=== PATIENT | female | born 1965 | race Caucasian/White ===

== ENCOUNTER 2022-10-16 11:02 | Emergency (ER) | payer MEDICARE, OTHER ==
[~2022-10-16] VITALS: Ht 154.9 cm; Wt 80.7 kg
[2022-10-16 11:16] VITALS: BP 127/82
--- NOTE | 2022-10-16 11:21 | NUR ---
PT W/C ASSISTED TO BED 2
[2022-10-16] MEDS ORDERED: KETOROLAC 60 MG/2 ML VIAL IM ONE (11:40)
--- NOTE | 2022-10-16 11:40 | NUR ---
ASSUMED PATIENT CARE, NURSING ASSESSMENT COMPLETED.
--- NOTE | 2022-10-16 12:02 | NUR ---
XRAY AT BEDSIDE.
[2022-10-16] MEDS ORDERED: ACET-8905 PO (13:46)
[2022-10-16] MEDS ORDERED: NAPR-1704 PO (13:46)
[2022-10-16 14:10] VITALS: BP 125/78
--- NOTE | 2022-10-16 14:11 | NUR ---
Note guilleone in EDM - 10/16/22 at 1602 by [id number] Patient discharged with v/s stable. Written and verbal after care instructions given and explained. Patient alert, oriented and verbalized understanding of instructions. Ambulatory with to car. All questions addressed prior to discharge. ID band removed. Patient advised to follow up with PMD. Rx of flexeril, lidocaine, naproxen given. Patient educated on indication of medication including possible reaction and side effects. Opportunity to ask questions provided and answered.
--- NOTE | 2022-10-16 14:55 | NUR ---
Patient discharged with v/s stable. Written and verbal after care instructions given and explained. Patient alert, oriented and verbalized understanding of instructions. Ambulatory with steady gait. All questions addressed prior to discharge. ID band removed. Patient advised to follow up with PMD. Rx of NORCO (SENT) given. Patient educated on indication of medication including possible reaction and side effects. Opportunity to ask questions provided and answered. PROVIDED CORRECT PAPERWORK
== END 2022-10-16 14:55 | disposition home or self-care (01) ==
LOC: MED 11:02
DX: S83.92XA Sprain of unspecified site of left knee, initial encounter (principal); S93.402A Sprain of unspecified ligament of left ankle, initial encounter; G81.94 Hemiplegia, unspecified affecting left nondominant side; R51.9 Headache, unspecified; M25.552 Pain in left hip; E11.9 Type 2 diabetes mellitus without complications; I10 Essential (primary) hypertension; Z86.73 Personal history of transient ischemic attack (TIA), and cerebral infarction without residual deficits; Z98.890 Other specified postprocedural states; Z79.1 Long term (current) use of non-steroidal anti-inflammatories (NSAID); Z79.891 Long term (current) use of opiate analgesic; W01.0XXA Fall on same level from slipping, tripping and stumbling without subsequent striking against object, initial encounter; Y92.89 Other specified places as the place of occurrence of the external cause; Y93.89 Activity, other specified; Y99.8 Other external cause status
CPT/HCPCS: 29515; 73562; 73610; 73630; 96374; 99284; J1885; Q0092

== ENCOUNTER 2024-01-29 11:52 | Emergency (ER) | payer MEDICARE, OTHER ==
[~2024-01-29] VITALS: Ht 157.5 cm; Wt 68.0 kg
[~2024-01-29 11:52] MED LIST: ACET-8905 PO; NAPR-1704 PO
[2024-01-29 11:54] VITALS: BP 138/71; PULSE 92; RESP 15; TEMP 98.7; O2SAT 96
[2024-01-29 12:58] LABS: BASOPHILS # (AUTO) 0.1 K/uL (0.00-0.22); EOSINOPHILS # (AUTO) 0.2 K/uL (0-0.4); EOSINOPHILS % (AUTO) 2.8 % (0.0-4.0); HEMATOCRIT 35.5 % (36-48); HEMOGLOBIN 11.9 g/dL (12.0-16.0); LYMPHOCYTES # (AUTO) 2.5 K/uL (2.5-16.5); LYMPHOCYTES % (AUTO) 36.7 % (20.5-51.1); MEAN CORPUSCULAR HEMOGLOBIN 32 pg (27-31); MEAN CORPUSCULAR HGB CONC 34 g/dL (33-37); MEAN CORPUSCULAR VOLUME 93.8 fL (80-94); MONOCYTES # (AUTO) 0.6 K/uL (0.8-1.0); MONOCYTES % (AUTO) 8.9 % (1.7-9.3); NEUTROPHILS # (AUTO) 3.5 K/uL (1.8-7.7); NEUTROPHILS % (AUTO) 50.6 % (42.2-75.2); PLATELET COUNT (AUTO) 286 K/uL (140-450); RED BLOOD CELL COUNT(AUTO) 3.79 MIL/uL (4.20-5.40); RED CELL DISTRIBUTION WIDTH 14.1 % (11.6-13.7); WHITE BLOOD COUNT (AUTO) 6.8 K/uL (4.8-10.8)
[2024-01-29 13:20] LABS: ANION GAP 10.4 (8-16); CALCIUM 8.6 mg/dL (8.5-10.1); CREATININE 0.6 mg/dL (0.6-1.3); POTASSIUM 3.4 mmol/L (3.5-5.1)
[2024-01-29 13:22] LABS: INR 0.94 (0.8-1.2); PARTIAL THROMBOPLASTIN TIME 22.2 secs (22-35.6); PROTHROMBIN TIME 9.9 secs (10.8-13.4)
[2024-01-29 13:28] LABS: ALANINE AMINOTRANSFERASE 28 U/L (12-78); ALBUMIN 2.4 g/dL (3.4-5.0); ALKALINE PHOSPHATASE 147 U/L (50-136); ASPARTATE AMINOTRANSFERASE 15 U/L (15-37); BILIRUBIN,DIRECT 0.1 mg/dL (0.0-0.3); TOTAL BILIRUBIN 0.3 mg/dL (0.0-1.0); TOTAL PROTEIN, SERUM 6.1 g/dL (6.4-8.2)
[2024-01-29] MEDS: HYDROcodone/APAP 5/325 MG 1 TAB TAB PO ONE (14:02)
[2024-01-29] MEDS ORDERED: KETOROLAC 30 MG/ML VIAL ONE (14:03)
[2024-01-29] MEDS ORDERED: MELO-174 PO (14:07)
[2024-01-29] MEDS: KETOROLAC 30 MG/ML VIAL IM ONE (14:09)
[2024-01-29 14:20] VITALS: BP 133/71; PULSE 88; RESP 16; TEMP 98.1; O2SAT 99
== END 2024-01-29 14:20 | disposition home or self-care (01) ==
LOC: MED 11:52
DX: M25.572 Pain in left ankle and joints of left foot (principal); R22.42 Localized swelling, mass and lump, left lower limb; E11.9 Type 2 diabetes mellitus without complications; I10 Essential (primary) hypertension; Z86.73 Personal history of transient ischemic attack (TIA), and cerebral infarction without residual deficits; Z79.899 Other long term (current) drug therapy
CPT/HCPCS: 36415; 80048; 80076; 83880; 84484; 85025; 85379; 85610; 85730; 93971; 96372; 99285; J1885; Q0092